=== PATIENT | male | born 1995 | race Caucasian/White ===

== ENCOUNTER 2019-05-20 23:37 | Emergency (ER) | payer OTHER ==
[~2019-05-20] VITALS: Ht 172.7 cm; Wt 92.6 kg
[2019-05-20 23:41] VITALS: Ht 172.7 cm; Wt 92.6 kg
[2019-05-21 01:26] VITALS: BP 133/88
== END 2019-05-21 01:26 | disposition home or self-care (01) ==
LOC: ED 23:37
DX: M94.0 Chondrocostal junction syndrome [Tietze] (principal); K21.9 Gastro-esophageal reflux disease without esophagitis